=== PATIENT | male | born 1985 ===

== ENCOUNTER 2017-08-24 11:18 | Emergency (ER) | payer SELFPAY ==
[2017-08-24 11:28] VITALS: BP 125/89; PULSE 71; RESP 20; O2SAT 98
[2017-08-24 11:29] VITALS: BMI 24.7
--- NOTE | 2017-08-24 12:31 | ED PDOC ---
Lower Extremity Pain/Injury Time Seen by Provider: 08/24/17 12:16 Chief Complaint (Nursing): Lower Extremity Problem/Injury Chief Complaint (Provider): Left Knee Pain History Per: Patient History/Exam Limitations: no limitations Onset/Duration Of Symptoms: Days (x1 month) Current Symptoms Are (Timing): Still Present Additional Complaint(s): 31 y/o male with no significant PMHx presenting for evaluation of left knee pain x1 month. Patient reports he fell at home one month ago, but did not seek medical attention at that time. Patient is presenting today with persistent pain and states he has been taking Motrin with relief, but he has not taken any in 4 days. PMD: None Past Medical History Reviewed: Historical Data, Nursing Documentation, Vital Signs Vital Signs: Last Vital Signs Temp 98.4 F 08/24/17 11:28 Pulse 71 08/24/17 11:28 Resp 20 08/24/17 11:28 BP 125/89 08/24/17 11:28 Pulse Ox 98 08/24/17 11:28 - Medical History PMH: No Chronic Diseases - Surgical History Surgical History: No Surg Hx - Family History Family History: States: No Known Family Hx - Living Arrangements Living Arrangements: With Family - Social History Current smoker - smoking cessation education provided: Yes (half pack per day) Alcohol: None Drugs: Denies - Home Medications Home Medications: Ambulatory Orders Medication Instructions Recorded Ibuprofen [Motrin Tab] 800 mg PO Q8 PRN #24 tab 08/24/17 - Allergies Allergies/Adverse Reactions: Allergies Allergy/AdvReac Type Severity Reaction Status Date / Time No Known Allergies Allergy Verified 08/24/17 12:10 Wells Criteria for PE - Wells Criteria for Pulmonary Embolism Clinical Signs and Symptoms of DVT: No P.E is #1 Diagnosis, or Equally Likely: No Heart Rate >100: No Immobilization at least 3 days;Surgery previous 4 weeks: No Previous, objectively diagnosed PE or DVT: No Hemoptysis: No Malignancy w/treatment within 6 months, or palliative: No Total Score: 0 Review of Systems ROS Statement: Except As Marked, All Systems Reviewed And Found Negative Musculoskeletal: Positive for: Leg Pain (left knee pain) Physical Exam - Reviewed Nursing Documentation Reviewed: Yes Vital Signs Reviewed: Yes - Physical Exam Appears: Positive for: Well, Non-toxic, No Acute Distress Skin: Positive for: Normal Color. Negative for: Rash Eye Exam: Positive for: Normal appearance Extremity: Positive for: Normal ROM (left knee), Tenderness (lateral aspect of left knee), Swelling (lateral aspect of left knee). Negative for: Calf Tenderness (or swelling) Neurologic/Psych: Positive for: Alert, Oriented - ECG O2 Sat by Pulse Oximetry: 98 (RA) Pulse Ox Interpretation: Normal - Other Rad Left knee x-ray X-Ray: Interpreted by Me, Viewed By Me X-Ray Interpretation: patellar fracture, calicified Medical Decision Making Medical Decision Makin:25 Impression: 31 y/o male with left knee pain Plan: -Left Knee X-ray -Motrin 600mg PO Patient states motrin helped with pain. Patient made aware of x-ray results. Crutches and knee immobilizer given along with rx for motrin. Patient was referred to clinic for follow up. Scribe Attestation: Documented by Shayan Kay, acting as a scribe for Flor Jaime PA-C. Provider Scribe Attestation: All medical record entries made by the scribe were at my direction and personally dictated by me. I have reviewed the chart and agree that the record accurately reflects my personal performance of the history, physical exam, medical decision making, and the department course for this patient. I have also personally directed, reviewed, and agree with the discharge instructions and disposition. Procedures - Splinting Location: left knee Pre-Made Type: knee immobilizer Pre-Proc Neuro Vasc Exam: normal Post-Proc Neuro Vasc Exam: normal Disposition - Clinical Impression Clinical Impression: Patellar fracture - Patient ED Disposition Is Patient to be Admitted: No Counseled Patient/Family Regarding: Studies Performed, Diagnosis, Need For Followup, Rx Given - Disposition Referrals: [facility] [Outside] Disposition: Routine/Home Disposition Time: 13:12 Condition: STABLE Additional Instructions: Ice, rest and elevate affected area. Take prescription meds as directed as needed for pain. Follow-up with clinic in 2-3 days. Prescriptions: Ibuprofen [Motrin Tab] 800 mg PO Q8 PRN #24 tab PRN Reason: Pain, Moderate (4-7) Instructions: Patella Fracture (DC), How to Use Crutches, Going Up and Down Curbs or Stairs With a Walker or Crutches, Knee Immobilizer (DC), Active Range of Motion Exercises, Knees and Ankles, Passive Range of Motion Exercises, Legs, Hips, Knees, and Ankles Forms: [place] (Yi) Print Language: EQUATORIAL GUINEAN
[2017-08-24 13:47] VITALS: TEMP 98.2
--- NOTE | 2017-08-24 17:12 | RAD ---
PROCEDURE: Left Knee Radiographs. HISTORY: Pain. COMPARISON: None. FINDINGS: BONES: No acute fracture or destructive bony lesion identified. Bipartite patella identified. No overlying soft tissue edema associated. JOINTS: Normal. No osteoarthritis. JOINT EFFUSION: [id number] suprapatellar bursa effusion identified. OTHER FINDINGS: None. IMPRESSION: [id number] suprapatellar bursa effusion identified. Bipartite patella identified. No definitive fracture, subluxation or dislocation. Further characterization can be provided by MRI if clinically warranted.
== END 2017-08-24 13:46 | disposition home or self-care (01) ==
LOC: H.ER 11:18
DX: S82.002A Unspecified fracture of left patella, initial encounter for closed fracture (principal); W19.XXXA Unspecified fall, initial encounter; F17.210 Nicotine dependence, cigarettes, uncomplicated